=== PATIENT | female | born 1965 | race Caucasian/White ===

== ENCOUNTER → 2016-09-04 | Outpatient (CLI) | payer OTHER ==
[~2016-09-04] MED LIST: CYCL-259 PO; ESTR1TAB15 PO; GABA100C8 PO; HYDR-3138 PO; HYDR-3241 PO; METH750T87 PO; NICO1PAT4 TD; OMEPRAZOLE DR PO; ONDA-39 PO; TEMA15CA PO; TEMA15CA6 PO; TRAM50TA2 PO
== END | disposition home or self-care (01) ==
LOC: RAD 16:30
PROVIDERS: ATTEND Family Medicine
DX: M25.551 Pain in right hip (principal)

== ENCOUNTER 2016-12-05 13:06 | Emergency (ER) | payer OTHER ==
[~2016-12-05] VITALS: Ht 157.5 cm; Wt 47.7 kg
[~2016-12-05 13:06] MED LIST changes: +GABA-826 PO; -GABA100C8 PO
[2016-12-05] MEDS ORDERED: KETOROLAC 30 MG/1 ML ONE (14:17)
[2016-12-05] MEDS ORDERED: HYDROmorphone 1 MG/ML, 1ML ONE (14:17)
[2016-12-05] MEDS ORDERED: ONDANSETRON 2MG/ML, 2ML ONE (14:18)
[2016-12-05] MEDS ORDERED: HYDROmorphone 1 MG/ML, 1ML IVPush PRN (14:30)
[2016-12-05] MEDS ORDERED: KETOROLAC 30 MG/1 ML IVPush ONE (14:30)
[2016-12-05] MEDS ORDERED: SODIUM CHLORIDE FLUSH 10ML SYR IVF ONE (14:30)
[2016-12-05] MEDS ORDERED: SODIUM CHLORIDE 0.9% 1,000ML IVBOLUS ONE (14:30)
[2016-12-05] MEDS ORDERED: ONDANSETRON 2MG/ML, 2ML IVPush ONE (14:30)
[2016-12-05 15:51] VITALS: BP 107/73
== END 2016-12-05 15:53 | disposition home or self-care (01) ==
LOC: ED 15:08
DX: G43.901 Migraine, unspecified, not intractable, with status migrainosus (principal); E11.9 Type 2 diabetes mellitus without complications; Z90.49 Acquired absence of other specified parts of digestive tract; Z90.710 Acquired absence of both cervix and uterus
CPT/HCPCS: 96361; 96374; 96375; 99284; J1170; J1885; J2405; J7030

== ENCOUNTER 2017-09-03 21:23 | Inpatient (IN) | payer OTHER ==
[~2017-09-03] VITALS: Ht 162.6 cm; Wt 41.8 kg
[~2017-09-03 21:23] MED LIST changes: -HYDR-3138 PO; +HYDR-3237 PO; +NICO-486 TD; -NICO1PAT4 TD; -ONDA-39 PO; +ONDA4TAB12 PO
[2017-09-03] MEDS ORDERED: ESTR1TAB15 PO (21:36)
[2017-09-03] MEDS ORDERED: SUMA50TA3 PO (21:36)
[2017-09-03] MEDS ORDERED: HYDR-3241 PO (21:36)
[2017-09-03] MEDS ORDERED: DIAZ10TA4 PO (21:36)
[2017-09-03] MEDS ORDERED: PROP60TA PO (21:36)
[2017-09-03] MEDS ORDERED: TOPI25TA8 PO (21:36)
[2017-09-03] MEDS: PROPOFOL 100 ML IV PRN ×2 (21:45→22:24)
[2017-09-03] MEDS ORDERED: SUCCINYLCHOLINE 20 MG/ML, 10ML IVPush ONE (22:00)
[2017-09-03] MEDS ORDERED: SODIUM CHLORIDE FLUSH 10ML SYR IVF ONE (22:00)
[2017-09-03] MEDS ORDERED: SODIUM CHLORIDE 0.9% 1,000ML IVBOLUS ONE (22:00)
[2017-09-03] MEDS ORDERED: MIDAZOLAM 1 MG/ML, 5ML IVPush ONE (22:00)
[2017-09-03 22:03] LABS: MICROSCOPIC NOT IND
[2017-09-03 22:08] LABS: CULTURE INDICATED? NO
[2017-09-03 22:16] LABS: AMPHETAMINE SCREEN, URINE Negative (Negative); BARBITURATE SCREEN, URINE Negative (Negative); BENZODIAZEPINE SCREEN, URINE Positive (Negative); CANNABINOID SCREEN, URINE Positive (Negative); COCAINE SCREEN, URINE Negative (Negative); METHADONE SCREEN, URINE Negative (Negative); OPIATE SCREEN, URINE Positive (Negative)
[2017-09-03 22:46] LABS: BASOPHILS # (AUTO) 0.02 x10^3/uL (0-0.1); BASOPHILS % (AUTO) 1 % (0-1); EOSINOPHILS # (AUTO) 0.06 x10^3/uL (0-0.4); EOSINOPHILS % (AUTO) 1 % (1-7); LYMPHOCYTES # (AUTO) 1.68 x10^3/uL (1-3.4); LYMPHOCYTES % (AUTO) 41 % (22-44); MD NO; MEAN CORPUSCULAR HEMOGLOBIN 30.9 pg (27.0-34.8); MEAN CORPUSCULAR HGB CONC 33.1 g/dL (32.4-35.8); MEAN CORPUSCULAR VOLUME 93.4 fL (80-100); MONOCYTES # (AUTO) 0.19 x10^3/uL (0.2-0.8); MONOCYTES % (AUTO) 5 % (2-9); NEUTROPHILS # (AUTO) 2.15 x10^3/uL (1.8-6.8); NEUTROPHILS % (AUTO) 52 % (42-75); PLATELET COUNT 229 x10^3/uL (130-400); RED BLOOD COUNT 3.58 x10^6/uL (3.82-5.3); RED CELL DISTRIBUTION WIDTH 12.3 % (9.6-15.2)
[2017-09-03] MEDS ORDERED: ENALAPRILAT 1.25 MG/ML, 2ML IVPush PRN (23:00)
[2017-09-03] MEDS ORDERED: BISACODYL 10 MG SUPP PR PRN (23:00)
[2017-09-03] MEDS ORDERED: hydrALAzine 20 MG/ML, 1ML IVPush PRN (23:00)
[2017-09-03] MEDS ORDERED: LABETALOL 5MG/ML, 20ML IVPush PRN (23:00)
[2017-09-03] MEDS ORDERED: HYDROmorphone 2 MG/ML, 1ML IVPush PRN (23:00)
[2017-09-03] MEDS ORDERED: DOCUSATE 100 MG CAPSULE PO PRN (23:00)
[2017-09-03] MEDS ORDERED: POLYETHYLENE GLYCOL 17 GM PACKET PO PRN (23:00)
[2017-09-03] MEDS ORDERED: ONDANSETRON 2MG/ML, 2ML IVPush PRN (23:00)
[2017-09-03] MEDS ORDERED: OXYcodone IR 5MG TABLET PO PRN (23:00)
[2017-09-03] MEDS ORDERED: ACETAMINOPHEN 325 MG TABLET PO PRN (23:00)
[2017-09-03] MEDS ORDERED: D5%-0.9% NACL+KCL 20MEQ 1,000 ML IV SCH (23:00)
[2017-09-03 23:08] LABS: INTERNATIONAL NORMALIZED RATIO 1.19 (0.93-1.1); PROTHROMBIN TIME 12.2 Seconds (9.6-11.5)
[2017-09-03 23:31] LABS: ACETAMINOPHEN 3 mcg/mL (10-30); ALANINE AMINOTRANSFERASE 29 U/L (12-78); ALKALINE PHOSPHATASE 39 U/L (45-117); ANION GAP 9 mmol/L (5-15); BILIRUBIN,TOTAL 0.2 mg/dL (0.2-1.0); CALCIUM 7.2 mg/dL (8.5-10.1); CHLORIDE 116 mmol/L (98-107); CREATININE 0.56 mg/dL (0.55-1.02); TOTAL PROTEIN 5.4 g/dL (6.4-8.2); TROPONIN I < 0.015 ng/mL (0.000-0.045)
[2017-09-03 23:32] LABS: FREE T4 (FREE THYROXINE) 0.87 ng/dL (0.76-1.46); SALICYLATE LEVEL < 1.7 mg/dL (2.8-20.0); THYROID STIMULATING HORMONE 1.37 mIU/L (0.358-3.740)
[2017-09-03 23:40] LABS: HEMOGLOBIN A1C 5.2 % (4.2-6.3)
[2017-09-03] MEDS ORDERED: PROPOFOL 100 ML IV PRN (23:43)
[2017-09-04] MEDS ORDERED: PHARMACY MAY ADJ FOR RENAL FX MC SCH
[2017-09-04] MEDS ORDERED: LIDOCAINE-MPF 1%, 2ML ENDO PRN
[2017-09-04] MEDS ORDERED: MAGNESIUM SULFATE PMX 4GM/100M 100 ML IV ONE
[2017-09-04] MEDS ORDERED: FAMOTIDINE 20 MG/2 ML IV SCH
[2017-09-04] MEDS: TOPIRAMATE 25 MG TABLET PO SCH ×2 (00:41→08:51)
[2017-09-04] MEDS: HEPARIN 5,000 UNITS/ML, 1ML SQ SCH ×2 (01:47→08:51)
[2017-09-04 02:51] VITALS: BP 113/73
[2017-09-04] MEDS: PROPOFOL 100 ML IV PRN (03:48)
[2017-09-04 04:00] VITALS: BP 117/75
[2017-09-04 04:45] LABS: ALANINE AMINOTRANSFERASE 28 U/L (12-78); ALBUMIN 3.1 g/dL (3.4-5.0); ANION GAP 6 mmol/L (5-15); CALCIUM 7.9 mg/dL (8.5-10.1); CHLORIDE 115 mmol/L (98-107); CREATININE 0.48 mg/dL (0.55-1.02)
[2017-09-04 04:50] LABS: ALKALINE PHOSPHATASE 43 U/L (45-117); BILIRUBIN,TOTAL 0.4 mg/dL (0.2-1.0); CHOL/HDL RATIO 2.1; CHOLESTEROL, TOTAL 142 mg/dL (140-239); HDL CHOL % 48 % (28-40); HDL CHOLESTEROL (DIRECT) 68 mg/dL (40-60); LDL CHOLESTEROL,CALCULATED 61 mg/dL (54-169); LDL/HDL RATIO 0.9 (0.5-3.0); TOTAL PROTEIN 5.6 g/dL (6.4-8.2); TRIGLYCERIDES 66 mg/dL (50-200); VLDL CHOLESTEROL 13 mg/dL (0-25)
[2017-09-04 05:04] LABS: BASOPHILS # (AUTO) 0.04 x10^3/uL (0-0.1); BASOPHILS % (AUTO) 0 % (0-1); EOSINOPHILS # (AUTO) 0.03 x10^3/uL (0-0.4); EOSINOPHILS % (AUTO) 0 % (1-7); LYMPHOCYTES # (AUTO) 2.87 x10^3/uL (1-3.4); LYMPHOCYTES % (AUTO) 30 % (22-44); MD NO; MEAN CORPUSCULAR HEMOGLOBIN 31.6 pg (27.0-34.8); MEAN CORPUSCULAR HGB CONC 33.4 g/dL (32.4-35.8); MEAN CORPUSCULAR VOLUME 94.5 fL (80-100); MEAN PLATELET VOLUME 7.4 fL (7.4-10.4); MONOCYTES % (AUTO) 4 % (2-9); NEUTROPHILS % (AUTO) 66 % (42-75); PLATELET COUNT 236 x10^3/uL (130-400); RED BLOOD COUNT 3.76 x10^6/uL (3.82-5.3); RED CELL DISTRIBUTION WIDTH 12.5 % (9.6-15.2)
[2017-09-04] MEDS ORDERED: PROPRANOLOL 60 MG TABLET PO SCH (09:00)
[2017-09-04] MEDS ORDERED: SUMATRIPTAN 100 MG TABLET PO PRN (11:30)
[2017-09-04] MEDS ORDERED: PROPOFOL 10 MG/ML, 20ML ONE (22:00)
[2017-09-04] MEDS ORDERED: MIDAZOLAM 1 MG/ML, 5ML ONE (22:00)
[2017-09-04] MEDS ORDERED: PROPOFOL 10 MG/ML, 100ML IV ONE (22:00)
[2017-09-04] MEDS ORDERED: SUCCINYLCHOLINE 20 MG/ML, 10ML ONE (22:00)
== END 2017-09-04 12:55 | disposition home or self-care (01) | DRG 917 ==
LOC: ED 21:44 → EDIP 23:02 → CCU 23:46
PROVIDERS: ADMIT Internal Medicine; ATTEND Internal Medicine
PROC: 5A1935Z Respiratory Ventilation, Less than 24 Consecutive Hours (ICD-10-PCS; principal; 2017-09-03)
PROC: 0T9B70Z Drainage of Bladder with Drainage Device, Via Natural or Artificial Opening (ICD-10-PCS; 2017-09-03)
PROC: 0BH17EZ Insertion of Endotracheal Airway into Trachea, Via Natural or Artificial Opening (ICD-10-PCS; 2017-09-03)
DX: T40.2X1A Poisoning by other opioids, accidental (unintentional), initial encounter (principal); G92 Toxic encephalopathy; J96.00 Acute respiratory failure, unspecified whether with hypoxia or hypercapnia; E44.0 Moderate protein-calorie malnutrition; K31.84 Gastroparesis; E11.43 Type 2 diabetes mellitus with diabetic autonomic (poly)neuropathy; Z68.1 Body mass index [BMI] 19.9 or less, adult; E11.649 Type 2 diabetes mellitus with hypoglycemia without coma; T42.4X1A Poisoning by benzodiazepines, accidental (unintentional), initial encounter; T40.7X1A Poisoning by cannabis (derivatives), accidental (unintentional), initial encounter; T51.91XA Toxic effect of unspecified alcohol, accidental (unintentional), initial encounter; Y92.89 Other specified places as the place of occurrence of the external cause; D64.9 Anemia, unspecified; E83.42 Hypomagnesemia; E87.6 Hypokalemia; F12.10 Cannabis abuse, uncomplicated; F22 Delusional disorders; G89.4 Chronic pain syndrome; M79.7 Fibromyalgia; Z90.710 Acquired absence of both cervix and uterus; Z87.891 Personal history of nicotine dependence; Z98.1 Arthrodesis status; G43.409 Hemiplegic migraine, not intractable, without status migrainosus; Z88.6 Allergy status to analgesic agent
CPT/HCPCS: 36415; 36600; 70450; 71045; 80053; 80061; 80307; 80329; 81003; 82803; 82962; 83036; 83735; 84439; 84443; 84478; 84484; 85025; 85610; 85730; 87040; 87070; 87081; 87147; 87205; 93005; 94002; 94003; 94150; J1644; J2250; J2704; G0480; J0330; J3475; J3480; J7030; S0028